=== PATIENT | female | born 1960 | race Caucasian/White ===

== ENCOUNTER 2016-09-28 08:23 | Emergency (ER) | payer MEDICARE, MEDICAID ==
[2016-09-28 10:09] LABS: Hematocrit 41 % (35-47); Hemoglobin 13.7 g/dl (12.0-16.0); Mean Corpuscular HGB Conc 34 g/dl (31-36); Mean Corpuscular Hemoglobin 30 pg (27-31); Mean Corpuscular Volume 90 fL (80-97); Mean Platelet Volume 9 um3 (7.4-10.4); Red Blood Count 4.53 10^6/ul (4.0-5.4); Red Cell Distribution Width 14 % (10.5-15); White Blood Count 8.4 10^3/ul (3.5-10.8)
[2016-09-28 10:20] LABS: ALT 19 U/L (7-52); Albumin 3.9 g/dL (3.2-5.2); Alkaline Phosphatase 158 U/L (34-104); Amylase < 10 U/L (29-103); BUN/Creatinine Ratio 16.2 (8-20); Blood Urea Nitrogen 11 mg/dL (6-24); C Reactive Protein 14.48 mg/L (< 5.00); CO2 Carbon Dioxide 27 mmol/L (22-32); Calcium 9.6 mg/dL (8.6-10.3); Chloride 104 mmol/L (101-111); EGFR African American 115.1 (>60); EGFR Non-African American 89.5 (>60); Globulin 3.3 g/dL (2-4); Glucose 124 mg/dL (70-100); Lipase < 10 U/L (11.0-82.0); Sodium 137 mmol/L (133-145); Total Protein 7.2 g/dL (6.4-8.9)
[2016-09-28 10:30] LABS: AST 26 U/L (13-39); Anion Gap 6 mmol/L (2-11); Potassium 4.6 mmol/L (3.5-5.0)
--- NOTE | 2016-09-28 11:02 | RAD ---
HISTORY: Diarrhea COMPARISONS: None VIEWS: Frontal views of the abdomen. FINDINGS: BOWEL: There is a nonspecific bowel gas pattern, with nondilated small bowel gas noted. There is a large amount of stool within the colon. There is gaseous distention of the colon without dilatation. CALCULI: There are no abnormal calculi. BONES AND SOFT TISSUES: Degenerative changes are noted OTHER FINDINGS: The lung bases are clear. There is no subphrenic gas. IMPRESSION: NONSPECIFIC BOWEL GAS PATTERN. GASEOUS DISTENTION OF THE COLON WITHOUT DILATATION
--- NOTE | 2016-09-28 14:51 | ED ---
Chirag Duran Billy, scribed for Arthur Connor MD on 09/28/16 at 0900 . GI/ HPI - HPI Summary HPI Summary: Patient is a 55 year-old female coming to [facility] for evaluation of 3 days of diarrhea. She describes watery stools without any blood or mucus. Nothing makes her symptoms better or worse. Denies any abdominal pain. She reports one isolated episode of nausea and vomiting. - History of Current Complaint Chief Complaint: EDGeneral Time Seen by Provider: 09/28/16 08:47 Stated Complaint: DIARRHEA FOR THREE DAYS Hx Obtained From: Patient Onset/Duration: Started Days Ago, Still Present Timing: Constant Severity: Moderate Current Severity: Moderate Pain Intensity: 0 Associated Signs and Symptoms: Positive: Nausea, Vomiting, Diarrhea Aggravating Factor(s): Nothing Alleviating Factor(s): Nothing - Additional Pertinent History Primary Care Physician: Dr. Rios - Allergy/Home Medications Allergies/Adverse Reactions: Allergies Allergy/AdvReac Type Severity Reaction Status Date / Time Clozapine [From Clozaril] Allergy Unknown Verified 04/08/16 13:36 Reaction Details Thiothixene [From Navane] Allergy Unknown Verified 04/08/16 13:36 Reaction Details PMH/Surg Hx/FS Hx/Imm Hx Endocrine/Hematology History: Denies: Hx Diabetes, Hx Thyroid Disease Cardiovascular History: Reports: Hx Hypertension Respiratory History: Denies: Hx Asthma, Hx Chronic Obstructive Pulmonary Disease (COPD) GI History: Denies: Hx Ulcer - Cancer History Hx Chemotherapy: No Hx Radiation Therapy: No - Surgical History Surgery Procedure, Year, and Place: eyes, teeth extracted Infectious Disease History: No Infectious Disease History: Denies: Hx Hepatitis, Hx Human Immunodeficiency Virus (HIV), Traveled Outside the US in Last 30 Days - Family History Known Family History: Negative: Hypertension, Diabetes - Social History Alcohol Use: None Substance Use Type: Reports: None Smoking Status (MU): Never Smoked Tobacco Have You Smoked in the Last Year: No Review of Systems Negative: Fever Positive: Vomiting, Diarrhea, Nausea. Negative: Abdominal Pain All Other Systems Reviewed And Are Negative: Yes Physical Exam - Summary Physical Exam Summary: The patient is an obese female. She is well-nourished in no acute distress and in no acute pain. The skin is warm and dry and skin color reflects adequate perfusion. There is feces on the feet. HEENT: The pupils are equal and reactive. The conjunctivae are clear and without drainage. Nares are patent and without drainage. Mouth reveals dry mucous membranes and the throat is without erythema and exudate. The external ears are intact. The ear canals are patent and without drainage. The tympanic membranes are intact. Patient has no visible dentition. Neck is supple with full range of motion and non-tender. There are no carotid bruits. There is no neck vein distension. Respiratory: Chest is non-tender. Lungs are clear to auscultation and breath sounds are symmetrical and equal. Cardiovascular: Heart is regular rate and rhythm. There is no murmur or rub auscultated. There is no peripheral edema and pulses are symmetrical and equal. Abdomen: The abdomen is soft, obese, and non-tender. There are normal bowel sounds heard in all four quadrants and there is no organomegaly palpated. Musculoskeletal: There is no back pain noted. Extremities are non-tender with full range of motion. There is good capillary refill. There is no peripheral edema or calf tenderness elicited. Neurological: Patient is alert and oriented to person, place and time. The patient has symmetrical motor strength in all four extremities. Cranial nerves are grossly intact. Deep tendon reflexes are symmetrical and equal in all four extremities. Psychiatric: The patient has an appropriate affect and does not exhibit any anxiety or depression. Triage Information Reviewed: Yes Vital Signs On Initial Exam: Initial Vitals Temp Pulse Resp BP Pulse Ox 98.5 F 94 20 156/73 100 09/28/16 08:26 09/28/16 08:26 09/28/16 08:26 09/28/16 08:26 09/28/16 08:26 Vital Signs Reviewed: Yes Diagnostics - Vital Signs Vital Signs Temp Pulse Resp BP Pulse Ox 09/28/16 08:26 98.5 F 94 20 156/73 100 - Laboratory Lab Results: Lab Results 09/28/16 09/28/16 09/28/16 Range/Units 09:45 09:45 09:45 WBC 8.4 (3.5-10.8) 10^3/ul RBC 4.53 (4.0-5.4) 10^6/ul Hgb 13.7 (12.0-16.0) g/dl Hct 41 (35-47) % MCV 90 (80-97) fL MCH 30 (27-31) pg MCHC 34 (31-36) g/dl RDW 14 (10.5-15) % Plt Count 220 (150-450) 10^3/ul MPV 9 (7.4-10.4) um3 Neut % (Auto) 70.7 (38-83) % Lymph % (Auto) 18.4 L (25-47) % [place] % (Auto) 7.4 (1-9) % Eos % (Auto) 2.9 (0-6) % Baso % (Auto) 0.6 (0-2) % Absolute Neuts (auto) 5.9 (1.5-7.7) 10^3/ul Absolute Lymphs (auto) 1.5 (1.0-4.8) 10^3/ul Absolute Monos (auto) 0.6 (0-0.8) 10^3/ul Absolute Eos (auto) 0.2 (0-0.6) 10^3/ul Absolute Basos (auto) 0.1 (0-0.2) 10^3/ul Absolute Nucleated RBC 0 10^3/ul Nucleated RBC % 0 Sodium 137 (133-145) mmol/L Potassium 4.6 (3.5-5.0) mmol/L Chloride 104 (101-111) mmol/L Carbon Dioxide 27 (22-32) mmol/L Anion Gap 6 (2-11) mmol/L BUN 11 (6-24) mg/dL Creatinine 0.68 (0.51-0.95) mg/dL Est GFR ( Amer) 115.1 (>60) Est GFR (Non-Af Amer) 89.5 (>60) BUN/Creatinine Ratio 16.2 (8-20) Glucose 124 H (70-100) mg/dL Lactic Acid 1.0 (0.5-2.0) mmol/L Calcium 9.6 (8.6-10.3) mg/dL Total Bilirubin 0.50 (0.2-1.0) mg/dL AST 26 (13-39) U/L ALT 19 (7-52) U/L Alkaline Phosphatase 158 H (34-104) U/L C-Reactive Protein 14.48 H (< 5.00) mg/L Total Protein 7.2 (6.4-8.9) g/dL Albumin 3.9 (3.2-5.2) g/dL Globulin 3.3 (2-4) g/dL Albumin/Globulin Ratio 1.2 (1-3) Amylase < 10 L (29-103) U/L Lipase < 10 L (11.0-82.0) U/L Result Diagrams: 09/28/16 09:45 09/28/16 09:45 Lab Statement: Any lab studies that have been ordered have been reviewed, and results considered in the medical decision making process. - Radiology abd xray Radiology Interpretation Completed By: Radiologist - NONSPECIFIC BOWEL GAS PATTERN. GASEOUS DISTENTION OF THE COLON WITHOUT DILATATION - EKG 0936 EKG Interpretation: afib 113 bpm, ST depressions V3-V6 GIGU Course/Dx - Course Assessment/Plan: Patient is a 55 year-old female coming to [facility] for evaluation of 3 days of diarrhea. She describes watery stools without any blood or mucus. Nothing makes her symptoms better or worse. Denies any abdominal pain. She reports one isolated episode of nausea and vomiting. Bloodwork WNL except for glucose of 124, CRP of 14.48. Abdominal XRay shows nonspecific bowel gas pattern. C. diff is negative. Occult blood is negative. Fecal leukocytes is negative. In the ED course, patient was hydrated with IVF. Vital signs continue to be stable. I believe that the patient has a viral diarrhea or osmotic diarrhea. Therefore, the patient will be discharged home to follow up with PCP. Patient is to take OTC anti-diarrheal medications such as immodium or pepto- bismol. Since the patient has no abdominal pain or other symptoms, she will be discharged home. She was instructed to return to the ED with more abdominal pain , N/V, intractable diarrhea, fevers, or chills. The patient understands and agrees. I discussed all the findings and test results with the patient. Patient was instructed to return to the emergency room immediately if any of the symptoms return or worsens. Plan of care was discussed with the patient and understands and agrees. All questions were answered at patient satisfaction. There were no further complaints or concerns. Lung exam before discharge: CTA B /L. Good air exchange. No wheezing or crackles heard. CVS: S1 and S2 present. No murmurs appreciated. Patient is alert and oriented x 3. Patient is hemodynamically stable. Patient will be discharged home with follow up coagulation operator in the next 2-3 days - Diagnoses Differential Diagnoses - Female: Gastroenteritis (Viral), Gerd, Urinary Tract Infection - Diarrhea Provider Diagnoses: Nausea vomiting and diarrhea Discharge - Discharge Plan Condition: Stable Disposition: HOME Patient Education Materials: Acute Nausea and Vomiting (ED), Acute Diarrhea (ED ) Referrals: Bayron Rios MD [Primary Care Provider] - Additional Instructions: TAKE OVER THE COUNTER ANTI-DIARRHEA MEDICATION SUCH IMMODIUM OR PEPTO-BISMOL. The documentation as recorded by the Chirag dhaliwal Billy accurately reflects the service I personally performed and the decisions made by Nikolas domingo Walter, MD.
[2016-09-28 14:58] VITALS: BP 113/76
== END 2016-09-28 14:56 | disposition home or self-care (01) ==
LOC: ED 08:23
DX: R11.2 Nausea with vomiting, unspecified (principal); R19.7 Diarrhea, unspecified
CPT/HCPCS: 36415; 74020; 80053; 82150; 82272; 83605; 83630; 83690; 85025; 86140; 87045; 87046; 87493; 87899; 93005; 99283

== ENCOUNTER 2017-06-24 18:17 | Emergency (ER) | payer MEDICARE, MEDICAID ==
[2017-06-24 19:49] LABS: Hematocrit 39 % (35-47); Hemoglobin 12.8 g/dl (12.0-16.0); Mean Corpuscular HGB Conc 33 g/dl (31-36); Mean Corpuscular Hemoglobin 31 pg (27-31); Mean Corpuscular Volume 92 fL (80-97); Mean Platelet Volume 9 um3 (7.4-10.4); Red Cell Distribution Width 14 % (10.5-15); White Blood Count 7.9 10^3/ul (3.5-10.8)
[2017-06-24 20:02] LABS: Albumin 3.8 g/dL (3.2-5.2); BUN/Creatinine Ratio 27.3 (8-20); Calcium 9.4 mg/dL (8.6-10.3); EGFR African American 118.7 (>60); EGFR Non-African American 92.3 (>60); Globulin 3.2 g/dL (2-4); Magnesium 1.8 mg/dL (1.9-2.7); Potassium 4.5 mmol/L (3.5-5.0); Total Bilirubin 0.4 mg/dL (0.2-1.0)
[2017-06-24 20:48] LABS: TSH (Thyroid Stimulating Horm) 4.39 mcIU/mL (0.34-5.60)
[2017-06-24 22:48] LABS: Urine Bacteria Absent (Absent); Urine Bilirubin Negative (Negative); Urine Glucose Negative (Negative); Urine Nitrite Negative (Negative)
[2017-06-24] MEDS ORDERED: Cephalexin CAP* 500 MG PO ONE (22:51)
--- NOTE | 2017-06-24 22:55 | ED ---
Jamir Duran Benjamin, scribed for Heron Rojas MD on 06/24/17 at 2138 . Complex/Multi-Sys Presentation - HPI Summary HPI Summary: 56yo female sent from [place] for lethargy. Staff also noticed flushing without any other particular complaints. Pt denies CP or SOB. Pt is unable to give full hx due to intellectual disabilities. LEVEL 5 CAVEAT intellectual disabilities. - History Of Current Complaint Chief Complaint: EDGeneral Hx Obtained From: Family/Varnish Melter - per group home report: lethargy Hx From Patient Unobtainable Due To: Altered Mental Status - LEVEL 5 CAVEAT intellectual disabilities. Associated Signs And Symptoms: Negative: SOB, Chest Pain - Allergies/Home Medications Allergies/Adverse Reactions: Allergies Allergy/AdvReac Type Severity Reaction Status Date / Time Bee Venom Allergy Unknown Verified 03/13/17 14:24 Reaction Details Clozapine [From Clozaril] Allergy See Comment Verified 04/19/17 09:21 Thiothixene [From Navane] Allergy See Comment Verified 04/19/17 09:21 PMH/Surg Hx/FS Hx/Imm Hx Endocrine/Hematology History: Denies: Hx Diabetes, Hx Thyroid Disease Cardiovascular History: Reports: Hx Hypertension Denies: Hx Angina Respiratory History: Denies: Hx Asthma, Hx Chronic Obstructive Pulmonary Disease (COPD) GI History: Denies: Hx Ulcer - Cancer History Hx Chemotherapy: No Hx Radiation Therapy: No - Surgical History Surgery Procedure, Year, and Place: eyes, teeth extracted Infectious Disease History: No Infectious Disease History: Denies: Hx Hepatitis, Hx Human Immunodeficiency Virus (HIV), Traveled Outside the US in Last 30 Days - Family History Known Family History: Negative: Hypertension, Diabetes - Social History Alcohol Use: None Substance Use Type: Reports: None Smoking Status (MU): Never Smoked Tobacco Have You Smoked in the Last Year: No Review of Systems - ROS Summary Review of Systems Summary: LEVEL 5 CAVEAT intellectual disabilities. Negative: Chest Pain Negative: Shortness Of Breath All Other Systems Reviewed And Are Negative: No Physical Exam - Summary Physical Exam Summary: Appearance: Well-appearing, Well-nourished Skin: Warm Eyes: Normal ENT: Normal Neck: Supple, nontender Respiratory: Clear to auscultation Cardiovascular: irregularly irregular rate and rhythm consistent with A-fib. Abdomen: Soft, nontender Bowel: Present Musculoskeletal: Normal, Strength/ROM Intact. Able to ambulate normally. Neurological: Normal, A&Ox3, limited verbal ability Psychiatric: Normal Triage Information Reviewed: Yes Vital Signs On Initial Exam: Initial Vitals Temp Pulse Resp BP Pulse Ox 96.4 F 80 18 135/58 98 06/24/17 18:22 06/24/17 18:22 06/24/17 18:22 06/24/17 18:22 06/24/17 18:22 Vital Signs Reviewed: Yes Completion Of Physical Exam Limited Due To: Level 5 - LEVEL 5 CAVEAT intellectual disabilities. Diagnostics - Vital Signs Vital Signs Temp Pulse Resp BP Pulse Ox 06/24/17 18:22 96.4 F 80 18 135/58 98 - Laboratory Lab Results: Lab Results 06/24/17 06/24/17 Range/Units 19:38 19:38 WBC 7.9 (3.5-10.8) 10^3/ul RBC 4.20 (4.0-5.4) 10^6/ul Hgb 12.8 (12.0-16.0) g/dl Hct 39 (35-47) % MCV 92 (80-97) fL MCH 31 (27-31) pg MCHC 33 (31-36) g/dl RDW 14 (10.5-15) % Plt Count 238 (150-450) 10^3/ul MPV 9 (7.4-10.4) um3 Neut % (Auto) 62.5 (38-83) % Lymph % (Auto) 26.9 (25-47) % [place] % (Auto) 6.3 (1-9) % Eos % (Auto) 3.4 (0-6) % Baso % (Auto) 0.9 (0-2) % Absolute Neuts (auto) 4.9 (1.5-7.7) 10^3/ul Absolute Lymphs (auto) 2.1 (1.0-4.8) 10^3/ul Absolute Monos (auto) 0.5 (0-0.8) 10^3/ul Absolute Eos (auto) 0.3 (0-0.6) 10^3/ul Absolute Basos (auto) 0.1 (0-0.2) 10^3/ul Absolute Nucleated RBC 0 10^3/ul Nucleated RBC % 0 Sodium 140 (133-145) mmol/L Potassium 4.5 (3.5-5.0) mmol/L Chloride 102 (101-111) mmol/L Carbon Dioxide 35 H (22-32) mmol/L Anion Gap 3 (2-11) mmol/L BUN 18 (6-24) mg/dL Creatinine 0.66 (0.51-0.95) mg/dL Est GFR ( Amer) 118.7 (>60) Est GFR (Non-Af Amer) 92.3 (>60) BUN/Creatinine Ratio 27.3 H (8-20) Glucose 147 H (70-100) mg/dL Calcium 9.4 (8.6-10.3) mg/dL Magnesium 1.8 L (1.9-2.7) mg/dL Total Bilirubin 0.40 (0.2-1.0) mg/dL AST 20 (13-39) U/L ALT 19 (7-52) U/L Alkaline Phosphatase 142 H (34-104) U/L Total Protein 7.0 (6.4-8.9) g/dL Albumin 3.8 (3.2-5.2) g/dL Globulin 3.2 (2-4) g/dL Albumin/Globulin Ratio 1.2 (1-3) TSH Pending Result Diagrams: 06/24/17 19:38 06/24/17 19:38 Lab Statement: Any lab studies that have been ordered have been reviewed, and results considered in the medical decision making process. - EKG 2115. EKG Rhythm: Atrial Fibrillation - 81bpm EKG Interpretation: borderline repolarization abnormality Re-Evaluation - Re-Evaluation First Eval Re-Evaluation Time: 22:53 - pt in no acute distress, denies any pain, agrees to and understnads dc instructions Change: Improved Complex Multi-Symp Course/Dx Course Of Treatment: pt feels better after ed course, seen to have mild uti, given abx and prescription, labs wnl, instructed to fu with PMD. rate controlled , no cp or sob. no signs of cardiac ischemic on ekg. - Diagnoses Provider Diagnoses: Atrial fibrillation Discharge - Discharge Plan Condition: Stable Disposition: HOME Prescriptions: Cephalexin CAP* [Keflex CAP*] 500 mg PO BID #10 cap Patient Education Materials: Urinary Tract Infection in Women (ED) Referrals: Bayron Rios MD [Primary Care Provider] - Additional Instructions: PLEASE RETURN IMMEDIATELY TO THE ER IF YOU HAVE ANY WORSENING OR CONCERNING SYMPTOMS PLEASE MAKE AN APPOINTMENT TO BE SEEN BY YOUR PRIMARY CARE DOCTOR WITHIN 1 WEEK The documentation as recorded by the Jamir dhaliwal Benjamin accurately reflects the service I personally performed and the decisions made by me, Heron Rojas MD.
[2017-06-24 23:01] VITALS: BP 150/69
== END 2017-06-24 23:21 | disposition home or self-care (01) ==
LOC: ED 18:17
DX: I48.91 Unspecified atrial fibrillation (principal); F79 Unspecified intellectual disabilities; Z86.79 Personal history of other diseases of the circulatory system
CPT/HCPCS: 36415; 80053; 80162; 81003; 81015; 83735; 84443; 85025; 87086; 93005; 99282; A9270-GY

== ENCOUNTER 2017-07-05 14:25 | Emergency (ER) | payer MEDICARE, MEDICAID ==
--- NOTE | 2017-07-05 16:50 | UC ---
Nausea/Vomiting/Diarrhea HPI - HPI Summary HPI Summary: 56 y/o female presents to the urgent care c/o diarrhea for the past 4 days. Pt has Hx intellectual disability level 5 CAVET. She was brought in to the clinic by a caregiver who left before Pt was seen. Caregiver stated to call a Medicaid cab when Pt was ready to go back to [facility]. Even though Pt's disability, she was able to states she has had 4 episodes of diarrhea every day for the past 3 days. She stated she is eating well and drinking well. She described her breakfast and luch. She denied cough, SOB, chest pain, abdominal pain, fever, N/V, blood in the stool. She hands in the [place] nursing report which states Pt's medication list and allergies. - History of Current Complaint Chief Complaint: UCGI Stated Complaint: DIARRHEA Time Seen by Provider: 07/05/17 16:21 Hx Obtained From: Patient, Medical Records - from [facility] report Hx From Patient Unobtainable Due To: Other - intelecctual disabilities Level CAVET ?: No Onset/Duration: Gradual Onset, Lasting Days - 3 days Timing: Intermittent Episodes Lasting: Severity Initially: Mild Severity Currently: Mild Pain Intensity: 0 Pain Scale Used: 0-10 Numeric Aggravating Factor(s): Food Nausea/Vomiting Presence: None Diarrhea Presence: Yes Diarrhea Frequency: Other - 4 episodes / day Diarrhea Characteristics: Watery - Risk Factors Influenza Risk Factors: Negative Surgical Obstruction Risk Factor(s): Negative - Allergies/Home Medications Allergies/Adverse Reactions: Allergies Allergy/AdvReac Type Severity Reaction Status Date / Time Bee Venom Allergy Unknown Verified 07/05/17 15:28 Reaction Details Clozapine [From Clozaril] Allergy See Comment Verified 07/05/17 15:28 Thiothixene [From Navane] Allergy See Comment Verified 07/05/17 15:28 PMH/Surg Hx/FS Hx/Imm Hx Previously Healthy: Yes Cardiovascular History: Hypertension Psychological History: Depression, Schizophrenia Other Psychological History: Parkinson - Surgical History Surgical History: Yes Surgery Procedure, Year, and Place: eyes, teeth extracted - Family History Known Family History: Positive: None - Pt unable to tell Negative: Hypertension, Diabetes - Social History Occupation: Disabled Lives: [facility] [employer] [facility] Alcohol Use: None Substance Use Type: None Smoking Status (MU): Never Smoked Tobacco Have You Smoked in the Last Year: No Review of Systems Constitutional: Negative Skin: Negative Eyes: Negative ENT: Negative Respiratory: Negative Cardiovascular: Negative Gastrointestinal: Diarrhea Genitourinary: Negative Motor: Negative Neurovascular: Negative Musculoskeletal: Negative Neurological: Negative Psychological: Negative Is Patient Immunocompromised?: No All Other Systems Reviewed And Are Negative: Yes Physical Exam Triage Information Reviewed: Yes Vital Signs: Initial Vital Signs Temp 96.9 F 07/05/17 15:22 Pulse 83 07/05/17 15:22 Resp 18 07/05/17 15:22 BP 111/47 07/05/17 15:22 Pulse Ox 98 07/05/17 15:22 - Additional Comments Vital Signs Reviewed: Yes General:Patient is a well developed and nourished obese female who is sitting comfortable in the examining table. Patient is not in any acute respiratory distress. Eyes: Positive: Conjunctiva Clear - PERRLA, EOMI, fundi grossly normal ENT: Positive: Normal ENT inspection, Hearing grossly normal, Pharynx normal, TMs normal Neck: Positive: Supple, Nontender, No Lymphadenopathy Respiratory: Positive: Chest non-tender, Lungs clear, Normal breath sounds, No respiratory distress Cardiovascular: Positive: RRR,S1 and S2 present, No Murmur, Pulses Normal, Brisk Capillary Refill Abdomen Description: Positive: Nontender, Other: - Abd: Flat with no distention. No surface trauma, scars, incisions. hyperactive bowel sounds present in all four quadrants. No tenderness, guarding, rigidity to palpation. No masses palpated, no pulsation in epigastric area. No organomegaly. Negative [place] signs. No periumbilical tenderness. No rebound in the lower quadrants. NT over [place] point. no distension. Good femoral pulses bilaterally. No hernia noted. No CVAT bilaterally Musculoskeletal: Positive: Strength Intact, ROM Intact, No Edema,FROM in all major joints, no edema, no cyanosis or clubbing. Neuro: Alert and oriented x 3. No acute neurological deficits. Speech delay. However Pt is able to answer questions Psycological: Pt with intellectual disabilities Skin: Dry and warm Naus/Vom/Diarrhea Course/Dx - Course Course Of Treatment: 56 y/o female presents to the urgent care c/o diarrhea for the past 4 days. Pt has Hx intellectual disability level 5 CAVET. She was brought in to the clinic by a caregiver who left before Pt was seen. Caregiver stated to call a Medicaid cab when Pt was ready to go back to [facility]. Even though Pt's disability, she was able to states she has had 4 episodes of diarrhea every day for the past 3 days. She stated she is eating well and drinking well. She described her breakfast and luch. She denied cough, SOB, chest pain, abdominal pain, fever, N/V, blood in the stool. She hands in the [place] nursing report which states Pt's medication list and allergies. Pt was recently seen at the ER on 06/24/2017 Dx with UTI. Hx obtained. PE: WNL. No signs of dehydration, Pt is hemodynamically stable. PE: WNL. Pt advised to bring back the stool, however due to her limitaion, instructions were faxed to the retirement, so they vcan bring back the stool sample. Stool culture ordered, O&P, Lactoferrin. E.Coli also ordered. Pt wiil be notify of the results for further treatment. [place] form filled out with treatment and instructions to increase hydration and eat small soft meals, if worsening of diarrhea to give PT Imodium PO to alleviate Diarrhea. If Symptoms worsen to go immediately to the ER for further management. f/u with PCP if not complete resolution of symptoms for BW and further management. Pt left the clinic ambulating, hemodynamically stable. - Differential Dx/Diagnosis Differential Diagnoses - Female: Diverticulosis, Gastroenteritis (Viral), Gastroenteritis (Bacterial), Diarrhea, Colitis, Dehydration Provider Diagnoses: 1- Acute diarrhea Condition At Discharge: Stable Discharge - Discharge Plan Condition: Stable Disposition: HOME Patient Education Materials: Acute Diarrhea (ED) Referrals: Bayron Rios MD [Primary Care Provider] - 2 Days Additional Instructions: 1- Please increase fluid intake with Gatorade or Pedialyte OTC. eat soft meals and rest. 2- Please bring back your stool to sent to lab for culture. 3- If diarrhea becomes severe start taking Imodium PO 2mg PO as directed in your list on medications 3- If you develops fever or abdominal pain w/ recurrent episodes of diarrhea please go the ER, otherwise f/u with your PCP if diarrhea not resolving in 2-3 days
[2017-07-05 17:14] VITALS: BP 117/67
== END 2017-07-05 17:05 | disposition home or self-care (01) ==
LOC: UCEAST 14:25
DX: R19.7 Diarrhea, unspecified (principal); F79 Unspecified intellectual disabilities; I10 Essential (primary) hypertension; F20.9 Schizophrenia, unspecified; F32.9 Major depressive disorder, single episode, unspecified; G20 Parkinson's disease
CPT/HCPCS: 99212; G0463

== ENCOUNTER 2019-06-03 13:56 | Emergency (ER) | payer MEDICARE, MEDICAID ==
[2019-06-03 16:00] LABS: ABS Eosinophils 0.1 10^3/ul (0-0.6); ABS Lymphocytes 1.3 10^3/ul (1.0-4.8); ABS Monocytes 0.7 10^3/ul (0-0.8); ABS Neutrophils 5.2 10^3/ul (1.5-7.7); Hematocrit 39 % (35-47); Hemoglobin 13.3 g/dL (12.0-16.0); Lymphocyte % 17.9 %; Mean Corpuscular HGB Conc 34 g/dL (31-36); Mean Corpuscular Hemoglobin 31 pg (27-31); Mean Corpuscular Volume 91 fL (80-97); Mean Platelet Volume 8.6 fL (7.4-10.4); Platelet Count 219 10^3/uL (150-450); Red Blood Count 4.34 10^6 /uL (3.70-4.87); Red Cell Distribution Width 14 % (10-15); White Blood Count 7.4 10^3/uL (3.5-10.8)
[2019-06-03 16:19] LABS: ALT 17 U/L (7-52); AST 22 U/L (13-39); Albumin 3.9 g/dL (3.2-5.2); Albumin/Globulin Ratio 1.2 (1-3); Alkaline Phosphatase 129 U/L (34-104); Anion Gap 7 mmol/L (2-11); BUN/Creatinine Ratio 21.7 (8-20); Blood Urea Nitrogen 15 mg/dL (6-24); CO2 Carbon Dioxide 30 mmol/L (22-32); Calcium 9.8 mg/dL (8.6-10.3); Chloride 104 mmol/L (101-111); EGFR African American 105.4 (>60); EGFR Non-African American 87.1 (>60); Globulin 3.2 g/dL (2-4); Glucose 113 mg/dL (70-100); Potassium 4.2 mmol/L (3.5-5.0); Sodium 141 mmol/L (135-145); Total Protein 7.1 g/dL (6.4-8.9)
--- NOTE | 2019-06-03 16:59 | ED ---
Abdominal Pain/Female - HPI Summary HPI Summary: 58 year old F presenting to [facility] complains of intermittent mid abdominal pain x3 weeks. Patient states that today, she was unable to handle the pain so she decided to come to the ED. No chest pain, shortness of breath, difficulty urinating. Reports constipation. Last bowel movement 2 weeks ago. No abdominal pain currently. The patient rates the pain 0/10 in severity. Symptoms aggravated by nothing. Symptoms alleviated by nothing. - History of Current Complaint Chief Complaint: EDAbdPain Stated Complaint: ABD PAIN PER PT Time Seen by Provider: 06/03/19 16:52 Hx Obtained From: Patient Onset/Duration: Lasting Weeks - 3, Still Present Timing: Intermittent Episode Lasting Severity Initially: Moderate Severity Currently: None Pain Intensity: 0 Pain Scale Used: 0-10 Numeric Location: Diffuse Aggravating Factor(s): Nothing Alleviating Factor(s): Nothing Associated Signs and Symptoms: Positive: Negative - chest pain, shortness of breath, difficulty urinating, Constipation Allergies/Adverse Reactions: Allergies Allergy/AdvReac Type Severity Reaction Status Date / Time bee venom protein (honey bee) Allergy Anaphylatic Verified 06/03/19 14:02 Shock clozapine [From Clozaril] Allergy Hives/Diff. Verified 06/03/19 14:02 Breathing/I tching thiothixene [From Navane] Allergy Hives/Diff. Verified 06/03/19 14:02 Breathing/I tching Home Medications: Home Medications Aspirin EC TAB* [Ecotrin EC Low Dose 81 MG*] 81 mg PO DAILY 06/03/19 [History Confirmed 06/03/19] Ibuprofen TAB* [Motrin TAB* 600 MG] 600 mg PO TID PRN 06/03/19 [History Confirmed 06/03/19] Loperamide CAP* [Imodium CAP*] 2 mg PO TID PRN 06/03/19 [History Confirmed 06/03] Metoprolol Succinate XL TAB* [Toprol XL TAB*] 25 mg PO QAM 06/03/19 [History Confirmed 06/03/19] Nystatin TOP POWDER* 1 applic TOPICAL TID PRN 06/03/19 [History Confirmed ] diPHENhydraMINE PO* [Benadryl PO 25 MG TAB*] 25 mg PO BEDTIME PRN 06/03/19 [ History Confirmed 06/03/19] tiZANidine TAB* [Zanaflex TAB*] 4 mg PO TID PRN 06/03/19 [History Confirmed ] PMH/Surg Hx/FS Hx/Imm Hx Endocrine/Hematology History: Denies: Hx Diabetes, Hx Thyroid Disease Cardiovascular History: Reports: Hx Hypertension Denies: Hx Angina Respiratory History: Denies: Hx Asthma, Hx Chronic Obstructive Pulmonary Disease (COPD) GI History: Denies: Hx Ulcer - Cancer History Hx Chemotherapy: No Hx Radiation Therapy: No - Surgical History Surgery Procedure, Year, and Place: eyes, teeth extracted Infectious Disease History: No Infectious Disease History: Denies: Hx Hepatitis, Hx Human Immunodeficiency Virus (HIV), Traveled Outside the [place] in Last 30 Days - Family History Known Family History: Negative: Hypertension, Diabetes - Social History Alcohol Use: None Substance Use Type: Reports: None Smoking Status (MU): Never Smoked Tobacco Have You Smoked in the Last Year: No Review of Systems Negative: Chest Pain Negative: Shortness Of Breath Positive: Abdominal Pain - mid, Other - constipation Positive: no symptoms reported All Other Systems Reviewed And Are Negative: Yes Physical Exam - Summary Physical Exam Summary: Constitutional: Well-developed, Well-nourished, Alert. (-) Distressed Skin: Warm, Dry, some erythema in lower legs HENT: Normocephalic; Atraumatic Eyes: Conjunctiva normal Neck: Musculoskeletal ROM normal neck. (-) JVD, (-) Stridor, (-) Tracheal deviation Cardio: Rhythm regular, rate normal, Heart sounds normal; Intact distal pulses; The pedal pulses are 2+ and symmetric. Radial pulses are 2+ and symmetric. (-) Murmur Pulmonary/Chest wall: Effort normal. (-) Respiratory distress, (-) Wheezes, (-) Rales Abd: Soft, epigastric tenderness, (-) Distension, (-) Guarding, (-) Rebound Musculoskeletal: Trace pitting edema in leg bilaterally Lymph: (-) Cervical adenopathy Neuro: Alert, Oriented x3 Psych: Mood and affect Normal Triage Information Reviewed: Yes Vital Signs On Initial Exam: Initial Vitals Temp Pulse Resp BP Pulse Ox 98.0 F 106 16 117/87 97 06/03/19 13:59 06/03/19 13:59 06/03/19 13:59 06/03/19 13:59 06/03/19 13:59 Vital Signs Reviewed: Yes Procedures - Sedation Patient Received Moderate/Deep Sedation with Procedure: No Diagnostics - Vital Signs Vital Signs Temp Pulse Resp BP Pulse Ox 06/03/19 15:45 98.1 F 99 19 138/73 99 06/03/19 13:59 98.0 F 106 16 117/87 97 - Laboratory Lab Results: Lab Results 06/03/19 06/03/19 Range/Units 15:44 15:44 WBC 7.4 (3.5-10.8) 10^3/uL RBC 4.34 (3.70-4.87) 10^6 /uL Hgb 13.3 (12.0-16.0) g/dL Hct 39 (35-47) % MCV 91 (80-97) fL MCH 31 (27-31) pg MCHC 34 (31-36) g/dL RDW 14 (10-15) % Plt Count 219 (150-450) 10^3/uL MPV 8.6 (7.4-10.4) fL Neut % (Auto) 69.7 % Lymph % (Auto) 17.9 % [place] % (Auto) 9.8 % Eos % (Auto) 2.0 % Baso % (Auto) 0.6 % Absolute Neuts (auto) 5.2 (1.5-7.7) 10^3/ul Absolute Lymphs (auto) 1.3 (1.0-4.8) 10^3/ul Absolute Monos (auto) 0.7 (0-0.8) 10^3/ul Absolute Eos (auto) 0.1 (0-0.6) 10^3/ul Absolute Basos (auto) 0.0 (0-0.2) 10^3/ul Absolute Nucleated RBC 0.0 10^3/ul Nucleated RBC % 0.0 Sodium 141 (135-145) mmol/L Potassium 4.2 (3.5-5.0) mmol/L Chloride 104 (101-111) mmol/L Carbon Dioxide 30 (22-32) mmol/L Anion Gap 7 (2-11) mmol/L BUN 15 (6-24) mg/dL Creatinine 0.69 (0.51-0.95) mg/dL Est GFR ( Amer) 105.4 (>60) Est GFR (Non-Af Amer) 87.1 (>60) BUN/Creatinine Ratio 21.7 H (8-20) Glucose 113 H (70-100) mg/dL Calcium 9.8 (8.6-10.3) mg/dL Total Bilirubin 0.60 (0.2-1.0) mg/dL AST 22 (13-39) U/L ALT 17 (7-52) U/L Alkaline Phosphatase 129 H (34-104) U/L Total Protein 7.1 (6.4-8.9) g/dL Albumin 3.9 (3.2-5.2) g/dL Globulin 3.2 (2-4) g/dL Albumin/Globulin Ratio 1.2 (1-3) Result Diagrams: 06/03/19 15:44 06/03/19 15:44 Lab Statement: Any lab studies that have been ordered have been reviewed, and results considered in the medical decision making process. - EKG 1708 Cardiac Rate: NL - 91 BPM EKG Rhythm: Atrial Fibrillation Summary of EKG Findings: Atrial fibrillation at 91 BPM, normal MS, normal QRS, normal QTc, normal axis, normal ST, normal T-waves. Overall, atrial fibrillation with normal ventricular rate. Re-Evaluation - Re-Evaluation First Eval Re-Evaluation Time: 20:02 Change: Improved Comment: upon re-examination, patient has no epigastric tenderness. agrees to d /c Abdominal Pain Fem Course/Dx - Course Course Of Treatment: 58 year old F complains of intermittent abdominal pain x3 weeks. Patient states that today, she was unable to handle the pain so she decided to come to the ED. Reports constipation. Last bowel movement 2 weeks ago. Physical exam findings: epigastric tenderness, trace pitting edema in bilateral lower extremities, erythema in lower legs. Bloodwork results with no significant abnormalities except for BUN/creatinine 21.7, glucose 113, alkaline phosphatase 129, lipase <10. The patient's pain has resolved. Patient will be discharged home with follow up from her primary care provider. Patient was instructed to return to Emergency Department for new or worsening symptoms. Patient understands and is agreeable to this plan. - Diagnoses Provider Diagnoses: Abdominal pain Discharge ED - Sign-Out/Discharge Documenting (check all that apply): Patient Departure - Discharge - Discharge Plan Condition: Stable Disposition: HOME Patient Education Materials: Acute Abdominal Pain (ED) Print Language: POLISH Referrals: Bayron Rios MD [Primary Care Provider] - Additional Instructions: Ms. Mendoza may resume all home medications, activities and meals. - Billing Disposition and Condition Condition: STABLE Disposition: Home - Attestation Statements Document Initiated by Juanibe: Yes Documenting Scribe: Tran Pearson Provider For Whom Rachelle is Documenting (Include Credential): Elisabeth Gutiérrez MD Scribe Attestation: ITran, scribed for Elisabeth Wooten MD on 06/03/19 at 2218. Scribe Documentation Reviewed: Yes Provider Attestation: The documentation as recorded by the Tran [email or web address] accurately reflects the service I personally performed and the decisions made by me, Elisabeth Wooten MD Status of Scribe Document: Viewed
[2019-06-03 17:32] LABS: Troponin I 0.01 ng/mL (<0.04)
[2019-06-03 21:48] VITALS: BP 120/67
== END 2019-06-03 21:45 | disposition home or self-care (01) ==
LOC: ED 13:56
DX: R10.84 Generalized abdominal pain (principal); I48.91 Unspecified atrial fibrillation; I10 Essential (primary) hypertension; Z79.82 Long term (current) use of aspirin; Z88.8 Allergy status to other drugs, medicaments and biological substances; Z91.030 Bee allergy status; M62.81 Muscle weakness (generalized); R06.02 Shortness of breath
CPT/HCPCS: 36415; 80053; 83690; 84484; 85025; 93005; 99282

== ENCOUNTER 2019-07-03 08:30 | Emergency (ER) | payer MEDICARE, MEDICAID ==
--- NOTE | 2019-07-03 09:13 | ED ---
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 She states she was unable to get out of the chair and experienced a mechanical fall while attempting to do this. She states she slid out of chair onto knees. She states this kind of weakness is abnormal for her. She denies any pain from the fall. Pt denies any fever, chills, erythema of eyes, sore throat, CP, SOB, cough, abdominal pain, N/V, dysuria, hematuria, myalgia, edema, rash, or dizziness. - History of Current Complaint Chief Complaint: EDFall Stated Complaint: WEAKNESS Time Seen by Provider: 07/03/19 09:01 Hx Obtained From: Patient Mechanism of Injury: Fall Onset/Duration: Started Minutes Ago Pain Intensity: 0 - Additional Pertinent History Primary Care Physician: Dr. Rios - Allergy/Home Medications Allergies/Adverse Reactions: Allergies Allergy/AdvReac Type Severity Reaction Status Date / Time bee venom protein (honey bee) Allergy Anaphylatic Verified 06/05/19 11:53 Shock clozapine [From Clozaril] Allergy Hives/Diff. Verified 06/05/19 11:53 Breathing/I tching thiothixene [From Navane] Allergy Hives/Diff. Verified 06/05/19 11:53 Breathing/I tching CORN STARCH Allergy Hives/Diff. Uncoded 06/05/19 11:53 Breathing/I tching Home Medications: Home Medications Calcium Polycarbophil [Fiber Laxative] 625 mg PO BID 07/03/19 [History Confirmed 07/03/19] Ferrous Sulfate TAB* 325 mg PO DAILY 07/03/19 [History Confirmed 07/03/19] Furosemide TAB* [Lasix TAB*] 20 mg PO MOTH 07/03/19 [History Confirmed 07/03/19] Magnesium Oxide TAB* [MagOx 400 TAB*] 400 mg PO BID 07/03/19 [History Confirmed 07/03/19] Zinc Oxide 12.8% (Topical) [Triple Paste 12.8% (TOPICAL)] 20 % TOPICAL DAILY [History Confirmed 07/03/19] hydrOXYzine HCL TAB* [Atarax 25 MG TAB*] 25 mg PO BEDTIME PRN 07/03/19 [History Confirmed 07/03/19] PMH/Surg Hx/FS Hx/Imm Hx Endocrine/Hematology History: Denies: Hx Diabetes, Hx Thyroid Disease Cardiovascular History: Reports: Hx Hypertension Denies: Hx Angina, Hx Pacemaker/ICD Respiratory History: Denies: Hx Asthma, Hx Chronic Obstructive Pulmonary Disease (COPD) GI History: Denies: Hx Ulcer History: Denies: Hx Renal Disease Sensory History: Denies: Hx Hearing Aid Psychiatric History: Denies: Hx Panic Disorder - Cancer History Hx Chemotherapy: No Hx Radiation Therapy: No - Surgical History Surgery Procedure, Year, and Place: eyes, teeth extracted Infectious Disease History: No Infectious Disease History: Denies: Hx Hepatitis, Hx Human Immunodeficiency Virus (HIV), Traveled Outside the [place] in Last 30 Days - Family History Known Family History: Negative: Hypertension, Diabetes - Social History Alcohol Use: None Substance Use Type: Reports: None Smoking Status (MU): Never Smoked Tobacco Have You Smoked in the Last Year: No Review of Systems Negative: Fever, Chills Negative: Erythema Negative: Sore Throat Negative: Chest Pain Negative: Shortness Of Breath, Cough Negative: Abdominal Pain, Vomiting, Nausea Negative: dysuria, hematuria Negative: Myalgia, Edema Negative: Rash Neurological: Other - Neg: Dizziness Positive: Weakness All Other Systems Reviewed And Are Negative: No Physical Exam - Summary Physical Exam Summary: Constitutional: Well-developed, Well-nourished, Alert. (-) Distressed Skin: Warm, Dry HENT: Normocephalic; Atraumatic Eyes: Conjunctiva normal Neck: Musculoskeletal ROM normal neck. (-) JVD, (-) Stridor, (-) Tracheal deviation Cardio: Rhythm regular, rate normal, Heart sounds normal; Intact distal pulses; The pedal pulses are 2+ and symmetric. Radial pulses are 2+ and symmetric. (-) Murmur Pulmonary/Chest wall: Effort normal. (-) Respiratory distress, (-) Wheezes, (-) Rales Abd: Soft, (-) tenderness, (-) Distension, (-) Guarding, (-) Rebound Musculoskeletal: (-) Edema Lymph: (-) Cervical adenopathy Neuro: Alert, Oriented x3. Lower extremity strength 5/5 bilaterally. Psych: Mood and affect Normal Triage Information Reviewed: Yes Vital Signs On Initial Exam: Initial Vitals Temp Pulse Resp BP Pulse Ox 98.1 F 91 18 121/83 99 12/13/19 08:41 07/03/19 08:41 07/03/19 08:41 07/03/19 08:41 07/03/19 08:41 Vital Signs Reviewed: Yes Procedures - Sedation Patient Received Moderate/Deep Sedation with Procedure: No Diagnostics - Vital Signs Vital Signs Temp Pulse Resp BP Pulse Ox 07/03/19 08:41 98.1 F 91 18 121/83 99 - Laboratory Result Diagrams: 07/03/19 09:15 07/03/19 09:15 Lab Statement: Any lab studies that have been ordered have been reviewed, and results considered in the medical decision making process. - Radiology CXR Radiology Interpretation Completed By: Radiologist Summary of Radiographic Findings: No acute process by radiograph. ED Provider has reviewed this report. - CT Brain CT Interpretation Completed By: Radiologist Summary of CT Findings: No acute intracranial pathology. - EKG 0945 Cardiac Rate: NL - 77 BPM EKG Rhythm: Atrial Fibrillation Summary of EKG Findings: No STEMI. Unchanged from 06/03/19. ED Physician has reviewed and interpreted this EKG. 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 Labs reveal Urine Protein 1+ A, Urine Blood 2+ A, Urine Nitrate Positive A, Ur Leukocyte Esterase 3+ A, Urine WBC 3+ A, Urine RBC 3+ A, Ur Squamous Epith Cells Present A, Urine Bacteria 2+ A. Patient was able to ambulate around the ED and currently has no complaints. Brain CT and CXR was unremarkable. EKG presents no acute problems. She was administered Keflex and Nystatin in the ED. A plan for discharge was discussed with the patient and she was agreeable with this plan. - Diagnoses Provider Diagnoses: Fall, UTI (urinary tract infection) Discharge ED - Sign-Out/Discharge Documenting (check all that apply): Patient Departure - Discharge - Discharge Plan Condition: Stable Disposition: HOME Prescriptions: Cephalexin CAP* [Keflex CAP*] 500 mg PO QID #20 cap Patient Education Materials: Urinary Tract Infection in Women (ED) Referrals: Bayron Rios MD [Primary Care Provider] - 3 Days Additional Instructions: Return to ED with new or worsening symptoms. - Attestation Statements Document Initiated by Scribe: Yes Documenting Scribe: Brandon Chase Provider For Whom Scribe is Documenting (Include Credential): Fran Barron MD Scribe Attestation: I, Brandon Chase, scribed for Fran Barron MD on 07/03/19 at 1119. Status of Scribe Document: Ready
[2019-07-03 09:26] LABS: ABS Basophils 0.1 10^3/ul (0-0.2); ABS Eosinophils 0.3 10^3/ul (0-0.6); ABS Lymphocytes 1.2 10^3/ul (1.0-4.8); ABS Monocytes 0.6 10^3/ul (0-0.8); ABS Neutrophils 6.5 10^3/ul (1.5-7.7); Eosinophil % 3.4 %; Hematocrit 38 % (35-47); Hemoglobin 13.2 g/dL (12.0-16.0); Lymphocyte % 13.8 %; Mean Corpuscular HGB Conc 35 g/dL (31-36); Mean Corpuscular Hemoglobin 31 pg (27-31); Mean Corpuscular Volume 90 fL (80-97); Mean Platelet Volume 8.2 fL (7.4-10.4); Nucleated Red Blood Cells % 0.1; Platelet Count 220 10^3/uL (150-450); Red Blood Count 4.22 10^6 /uL (3.70-4.87); Red Cell Distribution Width 14 % (10-15); White Blood Count 8.7 10^3/uL (3.5-10.8)
[2019-07-03 09:45] LABS: Albumin 3.7 g/dL (3.2-5.2); Albumin/Globulin Ratio 1.2 (1-3); BUN/Creatinine Ratio 27.1 (8-20); Calcium 9.6 mg/dL (8.6-10.3); EGFR African American 126.2 (>60); EGFR Non-African American 104.3 (>60); Globulin 3.2 g/dL (2-4); Magnesium 1.9 mg/dL (1.9-2.7); Potassium 4.5 mmol/L (3.5-5.0); Total Bilirubin 0.7 mg/dL (0.2-1.0); Total Protein 6.9 g/dL (6.4-8.9)
[2019-07-03] MEDS ORDERED: Nystatin TOP POWDER* 15 GM BTL TOPICAL SCH (10:00)
[2019-07-03 10:13] LABS: TSH (Thyroid Stimulating Horm) 2.87 mcIU/mL (0.34-5.60)
[2019-07-03 10:38] LABS: Urine Appearance Turbid; Urine Bilirubin Negative (Negative); Urine Blood 2+ (Negative); Urine Color Amber; Urine Glucose Negative (Negative); Urine Ketones Negative (Negative); Urine Nitrite Positive (Negative); Urine Protein 1+(30 mg/dL) (Negative); Urine Urobilinogen Negative (Negative)
[2019-07-03 10:41] LABS: Urine Bacteria 2+ (Absent); Urine Red Blood Cell 3+(>10/hpf) (Absent); Urine Squamous Epithelial Cell Present (Absent); Urine White Blood Cell 3+(>20/hpf) (Absent)
[2019-07-03] MEDS ORDERED: Cephalexin CAP* 500 MG PO ONE (11:00)
[2019-07-03 11:33] VITALS: BP 108/71
--- NOTE | 2019-07-05 05:55 | ED ---
Imaging and Labs Follow Up Follow Up Type: Labs/Cultures Labs/Culture Result: Urine culture preliminary grew Escherichia coli Patient Communication/Plan: Patient treated with Keflex Patient Communication/Plan: Awaiting sensitivities Provider Diagnoses: Fall, UTI (urinary tract infection)
== END 2019-07-03 11:37 | disposition home or self-care (01) ==
LOC: ED 08:30
DX: N39.0 Urinary tract infection, site not specified (principal); B96.20 Unspecified Escherichia coli [E. coli] as the cause of diseases classified elsewhere; R53.1 Weakness; I48.91 Unspecified atrial fibrillation; I10 Essential (primary) hypertension; Z91.030 Bee allergy status; Z88.8 Allergy status to other drugs, medicaments and biological substances; Z91.09 Other allergy status, other than to drugs and biological substances
CPT/HCPCS: 36415; 70450; 71045; 80053; 81003; 81015; 83605; 83735; 84443; 84484; 85025; 87077; 87086; 87186; 93005; 99282; A9270-GY

== ENCOUNTER 2019-07-17 10:19 | Inpatient (IN) | payer MEDICARE, MEDICAID ==
--- NOTE | 2019-07-17 10:54 | ED ---
Complex/Multi-Sys Presentation - HPI Summary HPI Summary: The patient is a 58 y/o F arriving by ambulance to [facility] from [facility] with a chief complaint of atraumatic mechanical fall this morning. She reports that she slipped and fell, causing her to land on the right side, but she did not hit her head. Nursing staff witnessed the fall. She states that following the fall, she attempted to get up by herself but was unable to without help. She denies headache, hip pain, neck pain, back pain, abdominal pain, nausea, SOB , CP, or any changes in urination or BMs. She has no other complaints at this time. PMHx: HTN, atrial fibrillation, schizophrenia. Nonsmoker, no EtOH, no substance use. Medications reviewed. Allergies noted. - History Of Current Complaint Chief Complaint: EDFall Time Seen by Provider: 07/17/19 10:33 Hx Obtained From: Patient Severity Currently: None Location: Negative Aggravating Factor(s): nothing Alleviating Factor(s): nothing Associated Signs And Symptoms: Negative: Headache, SOB, Chest Pain, Nausea, Abdominal Pain, Back Pain, Other - neck pain, hip pain, changes in urination or BMs, head injury - Allergies/Home Medications Allergies/Adverse Reactions: Allergies Allergy/AdvReac Type Severity Reaction Status Date / Time bee venom protein (honey bee) Allergy Anaphylatic Verified 06/05/19 11:53 Shock clozapine [From Clozaril] Allergy Hives/Diff. Verified 06/05/19 11:53 Breathing/I tching thiothixene [From Navane] Allergy Hives/Diff. Verified 06/05/19 11:53 Breathing/I tching CORN STARCH Allergy Hives/Diff. Uncoded 06/05/19 11:53 Breathing/I tching PMH/Surg Hx/FS Hx/Imm Hx Endocrine/Hematology History: Denies: Hx Diabetes, Hx Thyroid Disease Cardiovascular History: Reports: Hx Atrial Fibrillation, Hx Hypertension Denies: Hx Angina, Hx Pacemaker/ICD Respiratory History: Denies: Hx Asthma, Hx Chronic Obstructive Pulmonary Disease (COPD) GI History: Denies: Hx Ulcer History: Denies: Hx Renal Disease Sensory History: Denies: Hx Hearing Aid Psychiatric History: Reports: Hx Schizophrenia Denies: Hx Panic Disorder - Cancer History Hx Chemotherapy: No Hx Radiation Therapy: No - Surgical History Surgical History: Yes Surgery Procedure, Year, and Place: eyes, teeth extracted Infectious Disease History: No Infectious Disease History: Denies: Hx Hepatitis, Hx Human Immunodeficiency Virus (HIV), Traveled Outside the [place] in Last 30 Days - Family History Known Family History: Negative: Hypertension, Diabetes - Social History Alcohol Use: None Hx Substance Use: No Substance Use Type: Reports: None Hx Tobacco Use: No Smoking Status (MU): Never Smoked Tobacco Have You Smoked in the Last Year: No Review of Systems Negative: Chest Pain Negative: Shortness Of Breath Negative: Abdominal Pain, Nausea, Other - changes in BMs Negative: other - changes in urination Negative: Arthralgia - neck, back, hip Negative: Headache All Other Systems Reviewed And Are Negative: Yes Physical Exam - Summary Physical Exam Summary: Constitutional: Well-developed although appears older than age, Well-nourished, Alert. (-) Distressed Skin: Warm, Dry, No obvious contusions HENT: Normocephalic; Atraumatic Eyes: Conjunctiva normal Neck: Musculoskeletal ROM normal neck. (-) JVD, (-) Stridor, (-) Tracheal deviation Cardio: Rhythm regular, rate normal, Heart sounds normal; Intact distal pulses; The pedal pulses are 2+ and symmetric. Radial pulses are 2+ and symmetric. (-) Murmur Pulmonary/Chest wall: Effort normal. (-) Respiratory distress, (-) Wheezes, (-) Rales Abd: Soft, (-) tenderness, (-) Distension, (-) Guarding, (-) Rebound Musculoskeletal: (-) Edema Lymph: (-) Cervical adenopathy Neuro: Alert, Oriented x3, Good strength in all extremities Psych: Mood and affect Normal Triage Information Reviewed: Yes Vital Signs On Initial Exam: Initial Vitals Temp Pulse Resp BP Pulse Ox 97.7 F 70 16 132/59 98 07/17/19 10:32 07/17/19 10:32 07/17/19 10:32 07/17/19 10:32 07/17/19 10:32 Vital Signs Reviewed: Yes Procedures - Sedation Patient Received Moderate/Deep Sedation with Procedure: No Diagnostics - Vital Signs Vital Signs Temp Pulse Resp BP Pulse Ox 07/17/19 10:32 97.7 F 70 16 132/59 98 - Laboratory Lab Statement: Any lab studies that have been ordered have been reviewed, and results considered in the medical decision making process. - CT Brain CT CT Interpretation Completed By: Radiologist Summary of CT Findings: Impression: 1. No acute intracranial process evident. 2. No CT evidence for traumatic brain injury. 3. Moderate involutional change. ED physician has reviewed this report. Complex Multi-Symp Course/Dx Course Of Treatment: Patient is a 58 year-old female arriving by ambulance from senior living after sustaining an atraumatic mechanical fall onto her right side this morning as witnessed by staff. She denies any headache, hip pain, neck pain , back pain, abdominal pain, nausea, SOB, CP, or any changes in urination or BMs. Physical exam reveals good strength in all extremities, no obvious contusions, and appearance is older than age. Brain CT is negative. Since patient does not have any complaints, and the CT is negative, she is safe for discharge home with diagnosis of fall. Results discussed with patient. Patient understands and agrees with plan. - Diagnoses Provider Diagnoses: Fall Discharge ED - Sign-Out/Discharge Documenting (check all that apply): Patient Departure - Patient will be discharged home. - Discharge Plan Condition: Stable Disposition: HOME Patient Education Materials: Contusion in Adults (ED), Fall Prevention (ED) Print Language: ETHIOPIAN Referrals: Bayron Rios MD [Primary Care Provider] - 3 Days Additional Instructions: Ms. Mendoza may return to all home activities, medications, and meals. - Attestation Statements Document Initiated by Scribe: Yes Documenting Scribe: Terri Espinal Provider For Whom Scribe is Documenting (Include Credential): Dr. Elisabeth Wooten MD Scribe Attestation: Terri Duran scribed for Dr. Elisabeth Wooten MD on 07/17/19 at 1222. Status of Scribe Document: Ready
[2019-07-17 15:39] LABS: ABS Basophils 0.1 10^3/ul (0-0.2); ABS Eosinophils 0.2 10^3/ul (0-0.6); ABS Lymphocytes 1.8 10^3/ul (1.0-4.8); ABS Monocytes 0.4 10^3/ul (0-0.8); ABS Neutrophils 4.2 10^3/ul (1.5-7.7); Eosinophil % 3.6 %; Hematocrit 36 % (35-47); Hemoglobin 12.2 g/dL (12.0-16.0); Lymphocyte % 26.2 %; Mean Corpuscular HGB Conc 34 g/dL (31-36); Mean Corpuscular Hemoglobin 31 pg (27-31); Mean Corpuscular Volume 90 fL (80-97); Mean Platelet Volume 8.6 fL (7.4-10.4); Nucleated Red Blood Cells % 0.1; Platelet Count 225 10^3/uL (150-450); Red Blood Count 3.97 10^6 /uL (3.70-4.87); Red Cell Distribution Width 14 % (10-15); White Blood Count 6.7 10^3/uL (3.5-10.8)
[2019-07-17 16:00] LABS: Albumin 3.4 g/dL (3.2-5.2); Albumin/Globulin Ratio 1.2 (1-3); Calcium 9.1 mg/dL (8.6-10.3); EGFR Non-African American 96.7 (>60); Globulin 2.9 g/dL (2-4); Total Bilirubin 0.6 mg/dL (0.2-1.0); Total Protein 6.3 g/dL (6.4-8.9)
[2019-07-17] MEDS ORDERED: Ibuprofen TAB* 600 MG PO PRN (17:01)
[2019-07-17] MEDS ORDERED: Loperamide CAP* 2 MG PO PRN (17:01)
[2019-07-17] MEDS ORDERED: Acetaminophen TAB* 325 MG PO PRN (17:03)
[2019-07-17] MEDS ORDERED: Digoxin TAB* 0.25 MG PO SCH (18:00)
[2019-07-17] MEDS ORDERED: Enoxaparin(*) 40 MG/0.4 ML SYR SUBCUT SCH (18:00)
[2019-07-17] MEDS ORDERED: fluPHENAZine HCL TAB* 5 MG PO SCH (21:00)
--- NOTE | 2019-07-17 21:38 | HP ---
CC: Dr. Bayron Rios* HISTORY AND PHYSICAL: DATE OF ADMISSION: 07/17/19 PRIMARY CARE PROVIDER: Dr. Bayron Rios. ATTENDING PHYSICIAN: Dr. Brandon Orellana* (dictated by Bonnie Millard NP). CHIEF COMPLAINT: Fall. HISTORY OF PRESENT ILLNESS: Ms. Mendoza is a 58-year-old female with past medical history of atrial fibrillation and schizophrenia, who presented to the emergency room today after a fall. The patient resides at [facility]. Reportedly this morning, the patient states that she was getting up to get something out of a drawer when she fell. She denies hitting her head and denies any other injuries. She remembers the fall and did not lose any consciousness. Reportedly, staff at [facility] did witness the fall and the patient did require help getting up. The patient reports that she fell 1 time 4 to 5 weeks ago. She had some back pain after that fall, which has resolved at this time. The patient was seen in our emergency room on 07/03/19, at which time, she was diagnosed with a UTI and prescribed a course of Keflex, which she has completed. Reviewing her chart, it appears as though the patient has been seen by Neurology and was last seen on 06/24/19 for right-sided weakness followup. She has had a brain and cervical spine MRI, which are unremarkable, but she has been noted to have some right-sided weakness and she has been seen leaning towards her right side. At that point, Neurology had no acute concerns , though did recommend that she potentially have an EMG as well as physical therapy and they wanted to follow up with her in 2 to 3 months. In the emergency room, the patient was noted to have normal vitals. She had a brain CT, which was unremarkable. She had labs, which were also unremarkable. ED staff attempted to discharge the patient, though [facility] ultimately refused to take the patient back, as our physical therapist did recommend that she be a standby assist and they noted that she would need to be independent to return back. I will note that according to Neurology notes, the patient has been using a walker to ambulate. Because there was not a safe discharge plan, the hospitalist service was asked to evaluate for admission. PAST MEDICAL HISTORY: 1. Atrial fibrillation. 2. Schizophrenia. 3. Obstructive sleep apnea. 4. Seizure x1. PAST SURGICAL HISTORY: None. HOME MEDICATIONS: 1. Abilify 30 mg p.o. daily. 2. Aspirin 81 mg p.o. daily. 3. Cogentin 2 mg p.o. daily. 4. Calcium polycarbophil 625 mg p.o. b.i.d. 5. Digoxin 0.25 mg p.o. Saturday, Saturday, Saturday, Saturday, Saturday. 6. EpiPen 0.3 mg injection once p.r.n. 7. Ferrous sulfate 325 mg p.o. daily. 8. Fluoxetine 30 mg p.o. daily. 9. Prolixin 5 mg p.o. at bedtime. 10. Furosemide 20 mg p.o. Saturday and . 11. Hydroxyzine 25 mg p.o. at bedtime. 12. Ibuprofen 600 mg p.o. t.i.d. p.r.n. 13. Imodium 2 mg p.o. t.i.d. p.r.n. 14. Magnesium oxide 400 mg p.o. b.i.d. 15. Metoprolol succinate 25 mg p.o. daily. 16. Nystatin powder 1 application topically 2 to 3 times a day p.r.n. 17. Zinc oxide 12.8% one application topically daily. ALLERGIES: CLOZAPINE, THIOTHIXENE, BEE VENOM and CORN STARCH. FAMILY HISTORY: Unknown as the patient was a foster child. SOCIAL HISTORY: The patient denies any tobacco, alcohol, or recreational drug use. She is disabled and lives at [facility]. She reports that staff at [facility] do make healthcare decisions for her, but she is unable to name anyone person in particular. REVIEW OF SYSTEMS: An 11-point review of systems was performed and all the pertinent positive and negative findings are in the HPI. All other systems are negative. PHYSICAL EXAMINATION GENERAL: Ms. Mendoza is a well-developed, well-nourished, obese white female, lying in bed, in no acute distress. She appears slightly older than her stated age. VITAL SIGNS: Temp 97.7, heart rate 78, respiratory rate 20, oxygen saturation 96% on room air, blood pressure 118/69. HEENT: Head is atraumatic and normocephalic. Visual valdovinos are grossly intact. Pupils are equal, round, and reactive to light and accommodation. Extraocular movements intact. Oral mucous membranes moist. NECK: Thyroid not palpable. Trachea midline. No lymphadenopathy. RESPIRATORY: Symmetrical chest expansion. Lungs clear to auscultation throughout. CARDIOVASCULAR: Irregular rhythm. S1 and S2 present. No murmurs, rubs, or gallops. No JVD. ABDOMEN: Soft, nontender to palpation. Bowel sounds normoactive throughout. EXTREMITIES: Skin warm and smooth bilaterally. Trace pitting edema to bilateral lower extremities. Pedal pulses 2+ bilaterally. NEUROLOGIC: Awake, alert, and oriented x4, though forgetful and slow to respond. Moves all extremities. Strength 5/5 in upper and lower extremities bilaterally. SKIN: There is some mild redness noted to the left lower leg, though no open sores and no obvious site of infection. DIAGNOSTIC STUDIES/LAB DATA: WBC 6.7, RBC 3.97, hemoglobin 12.2, hematocrit 36 , platelets 225. Sodium 141, potassium 4.0, chloride 106, carbon dioxide 30, BUN 12, creatinine 0.63, glucose 92. Brain CT reads as no acute intracranial process evident. No CT evidence for traumatic brain injury. Mild involutional change. ASSESSMENT AND PLAN: Ms. Mendoza is a 58-year-old female with past medical history of atrial fibrillation, schizophrenia and untreated sleep apnea, who presented to the emergency room today after a fall. Staff at [facility] reported that they were unable to take the patient back, as she was requiring a standby assist to safely ambulate. The patient will be admitted inpatient longterm for : 1. Weakness. This appears to be somewhat of a chronic issue, as the patient has been seen at least twice now by Neurology for right-sided weakness. She has had a workup with them without any significant findings. They did recommend an EMG. It is unclear if that has been done at this point or if it is scheduled. They did also recommend physical therapy and followup in 2 to 3 months. She had a mechanical fall today. There is no evidence of syncope. There is no evidence of infection or other acute pathology that would exacerbate or lead to a fall. She will be admitted longterm status with physical therapy and occupational therapy evaluations and likely need for subacute rehab. 2. Atrial fibrillation. The patient is rate controlled. Per Cardiology note, she is on aspirin only and no anticoagulation due to a CHADS2-VASc score of 1. We will continue her aspirin, metoprolol and digoxin. 3. Schizophrenia. Continue fluoxetine, Abilify, Cogentin and Prolixin. 4. Lower extremity edema. Continue furosemide twice weekly. 5. FEN. The patient does not requiring any fluid resuscitation or electrolyte repletion. I have ordered a regular diet. 6. Code status. She will be a full code. 7. DVT prophylaxis. According to the DVT Risk Assessment, the patient scores a 3, putting her at high risk. I have ordered Lovenox. TIME SPENT: Approximately 50 minutes were spent on this admission, greater than half of that time spent [id number] with the patient obtaining my history , performing my physical exam and reviewing the plan of care. This case has been reviewed with my attending, Dr. Orellana, who is in agreement with the plan of care. BONNIE MILLARD NP [id number]/[facility] #: [id number] DEE DEE
[2019-07-17] MEDS: Digoxin TAB* 0.25 MG PO SCH (22:17)
[2019-07-17] MEDS: Magnesium Oxide TAB* 400 MG PO SCH (22:17)
[2019-07-17] MEDS: hydrOXYzine HCL TAB* 25 MG PO SCH (22:17)
--- NOTE | 2019-07-18 08:46 | PN ---
Subjective Date of Service: 07/18/19 Interval History: patient with no complaints. Denies chest pain or shortness of breath. Denies fever or chills, n/v/d. Family History: Unchanged from Admission Social History: Unchanged from Admission Past Medical History: Unchanged from Admission Objective Active Medications: Acetaminophen (Tylenol Tab*) 650 mg PO Q4H PRN PRN Reason: PAIN - MILD Aripiprazole (Abilify Tab*) 30 mg PO QAM [facility] Aspirin (Aspirin Ec Tab*) 81 mg PO DAILY [facility] Benztropine Mesylate (Cogentin Tab*) 2 mg PO DAILY [facility] Digoxin (Lanoxin Tab*) 0.25 mg PO [id number]@0900 [facility] Last Admin: 07/17/19 22:17 Dose: 0.25 mg Enoxaparin Sodium (Lovenox(*)) 40 mg SUBCUT Q24H [facility] Last Admin: 07/17/19 22:18 Dose: 40 mg Ferrous Sulfate (Ferrous Sulfate Tab*) 325 mg PO DAILY [facility] Fluoxetine HCl (Prozac Cap*) 10 mg PO QAM [facility] Fluoxetine HCl (Prozac Cap*) 20 mg PO QAM [facility] Fluphenazine HCl (Prolixin Tab*) 5 mg PO 0900 [facility] Furosemide (Lasix Tab*) 20 mg PO MOTH [facility] Hydroxyzine HCl (Atarax Tab*) 25 mg PO BEDTIME [facility] Last Admin: 07/17/19 22:17 Dose: 25 mg Ibuprofen (Motrin Tab*) 600 mg PO TID PRN PRN Reason: PAIN - MODERATE Loperamide HCl (Imodium Cap*) 2 mg PO TID PRN PRN Reason: DIARRHEA Magnesium Oxide (Magox 400 Tab*) 400 mg PO BID [facility] Last Admin: 07/17/19 22:17 Dose: 400 mg Metoprolol Succinate (Toprol Xl Tab*) 25 mg PO QAM [facility] Oxygen Devices in Use Now: None Appearance: alert and oriented sitting on the edge of the bed, no acute distress Eyes: No Scleral Icterus Ears/Nose/Mouth/Throat: Clear Oropharnyx, Mucous Membranes Moist Neck: NL Appearance and Movements; NL JVP, Trachea Midline Respiratory: Symmetrical Chest Expansion and Respiratory Effort, Clear to Auscultation Cardiovascular: NL Sounds; No Murmurs; No JVD, No Edema Abdominal: NL Sounds; No Tenderness; No Distention Extremities: No Edema, No Clubbing, Cyanosis Skin: No Rash or Ulcers Neurological: Alert and Oriented x 3 Nutrition: Taking PO's Result Diagrams: 07/17/19 15:29 07/17/19 15:28 Assess/Plan/Problems-Billing Assessment: Ms. Mendoza is a 58 y.o female with presented with a fall. She was admitted for [facility] for short term rehab placement as she was unable to return to [facility]. - Patient Problems (1) Weakness Current Visit: Yes Status: Acute Code(s): R53.1 - WEAKNESS SNOMED Code(s) : 67170201 Comment: - PT evaluation - recommended Skilled PT - will need STR at discharge (2) Atrial fibrillation Current Visit: No Status: Chronic Code(s): I48.91 - UNSPECIFIED ATRIAL FIBRILLATION SNOMED Code(s): 49217644 Comment: stable Continue digoxin and metoprolol (3) Schizophrenia Current Visit: Yes Status: Acute Code(s): F20.9 - SCHIZOPHRENIA, UNSPECIFIED SNOMED Code(s): 86421090 Comment: Stable Continue abilify, prozac, cogentin and prolixin (4) DVT prophylaxis Current Visit: Yes Status: Acute Code(s): Z29.9 - ENCOUNTER FOR PROPHYLACTIC MEASURES, UNSPECIFIED SNOMED Code(s): 306013721 Comment: lovenox (5) Full code status Current Visit: Yes Status: Acute Code(s): Z78.9 - OTHER SPECIFIED HEALTH STATUS SNOMED Code(s): 326539048 Status and Disposition: STR at discharge
[2019-07-18] MEDS: Magnesium Oxide TAB* 400 MG PO SCH ×2 (09:43→21:37)
[2019-07-18] MEDS: Aspirin EC TAB* 81 MG TAB.EC PO SCH (09:44)
[2019-07-18] MEDS: ARIPiprazole TAB* 15 MG PO SCH (09:44)
[2019-07-18] MEDS: fluPHENAZine HCL TAB* 5 MG PO SCH (09:44)
[2019-07-18] MEDS: Ferrous Sulfate TAB* 325 MG PO SCH (09:44)
[2019-07-18] MEDS: FLUoxetine CAP* 10 MG PO SCH (09:44)
[2019-07-18] MEDS: Benztropine TAB* 2 MG PO SCH (09:44)
[2019-07-18] MEDS: FLUoxetine CAP* 20 MG PO SCH (09:44)
[2019-07-18] MEDS: Metoprolol Succinate XL TAB* 25 MG PO SCH (09:44)
[2019-07-18] MEDS ORDERED: Magnesium Hydroxide LIQ* 30 ML UDC PO PRN (13:27)
[2019-07-18] MEDS: Digoxin TAB* 0.25 MG PO SCH (14:02)
[2019-07-18] MEDS: Enoxaparin(*) 40 MG/0.4 ML SYR SUBCUT SCH ×2 (21:38→21:42)
[2019-07-18] MEDS: hydrOXYzine HCL TAB* 25 MG PO SCH (21:38)
[2019-07-18] MEDS: Nystatin TOP POWDER* 15 GM BTL TOPICAL SCH (21:38)
[2019-07-19] MEDS: Benztropine TAB* 2 MG PO SCH (08:44)
[2019-07-19] MEDS: fluPHENAZine HCL TAB* 5 MG PO SCH (08:44)
[2019-07-19] MEDS: FLUoxetine CAP* 10 MG PO SCH (08:44)
[2019-07-19] MEDS: Magnesium Oxide TAB* 400 MG PO SCH ×2 (08:44→21:28)
[2019-07-19] MEDS: Aspirin EC TAB* 81 MG TAB.EC PO SCH (08:44)
[2019-07-19] MEDS: Digoxin TAB* 0.25 MG PO SCH (08:44)
[2019-07-19] MEDS: Ferrous Sulfate TAB* 325 MG PO SCH (08:44)
[2019-07-19] MEDS: ARIPiprazole TAB* 15 MG PO SCH (08:45)
[2019-07-19] MEDS: Nystatin TOP POWDER* 15 GM BTL TOPICAL SCH ×2 (08:45→21:30)
[2019-07-19] MEDS: FLUoxetine CAP* 20 MG PO SCH (08:45)
[2019-07-19] MEDS: Metoprolol Succinate XL TAB* 25 MG PO SCH (08:45)
[2019-07-19] MEDS: hydrOXYzine HCL TAB* 25 MG PO SCH (21:28)
[2019-07-19] MEDS: Enoxaparin(*) 40 MG/0.4 ML SYR SUBCUT SCH (21:29)
[2019-07-20] MEDS: Metoprolol Succinate XL TAB* 25 MG PO SCH (07:48)
[2019-07-20] MEDS: Aspirin EC TAB* 81 MG TAB.EC PO SCH (07:48)
[2019-07-20] MEDS: FLUoxetine CAP* 10 MG PO SCH (07:48)
[2019-07-20] MEDS: Benztropine TAB* 2 MG PO SCH (07:48)
[2019-07-20] MEDS: Magnesium Oxide TAB* 400 MG PO SCH ×2 (07:48→20:47)
[2019-07-20] MEDS: Ferrous Sulfate TAB* 325 MG PO SCH (07:48)
[2019-07-20] MEDS: FLUoxetine CAP* 20 MG PO SCH (07:48)
[2019-07-20] MEDS: fluPHENAZine HCL TAB* 5 MG PO SCH (07:49)
[2019-07-20] MEDS: ARIPiprazole TAB* 15 MG PO SCH (07:49)
[2019-07-20] MEDS: Nystatin TOP POWDER* 15 GM BTL TOPICAL SCH ×2 (07:49→20:49)
[2019-07-20] MEDS ORDERED: Furosemide TAB* 20 MG PO SCH (09:00)
[2019-07-20] MEDS: Enoxaparin(*) 40 MG/0.4 ML SYR SUBCUT SCH (20:44)
[2019-07-20] MEDS: hydrOXYzine HCL TAB* 25 MG PO SCH (20:47)
[2019-07-21 07:11] VITALS: BP 109/63
[2019-07-21] MEDS: Ferrous Sulfate TAB* 325 MG PO SCH (08:38)
[2019-07-21] MEDS: Benztropine TAB* 2 MG PO SCH (08:39)
[2019-07-21] MEDS: FLUoxetine CAP* 10 MG PO SCH (08:39)
[2019-07-21] MEDS: ARIPiprazole TAB* 15 MG PO SCH (08:39)
[2019-07-21] MEDS: fluPHENAZine HCL TAB* 5 MG PO SCH (08:39)
[2019-07-21] MEDS: FLUoxetine CAP* 20 MG PO SCH (08:39)
[2019-07-21] MEDS: Magnesium Oxide TAB* 400 MG PO SCH (08:39)
[2019-07-21] MEDS: Aspirin EC TAB* 81 MG TAB.EC PO SCH (08:39)
[2019-07-21] MEDS: Metoprolol Succinate XL TAB* 25 MG PO SCH (08:39)
[2019-07-21] MEDS: Nystatin TOP POWDER* 15 GM BTL TOPICAL SCH (08:40)
[2019-07-21] MEDS: Digoxin TAB* 0.25 MG PO SCH (08:45)
--- NOTE | 2019-07-21 14:57 | DS ---
CC: Dr. Rios * DISCHARGE SUMMARY: DATE OF ADMISSION: 07/17/19 DATE OF DISCHARGE: 07/21/19 ATTENDING PHYSICIAN: Dr. Osullivan* (dictated by Tate Carrera, KACEY). PRIMARY CARE PHYSICIAN: Dr. Rios. PRIMARY DIAGNOSIS: Fall secondary to deconditioning. SECONDARY DIAGNOSES: 1. Atrial fibrillation. 2. Schizophrenia. 3. Bilateral lower extremity edema. PROCEDURES: None. STUDIES: Brain CT without contrast showed no acute intracranial process evident. No CT evidence for traumatic brain injury and moderate involutional change. PERTINENT LAB DATA: RBC 3.97, hemoglobin 12.2, hematocrit 36, WBC is 6.7. Sodium 141, potassium 4.0, chloride 106, creatinine 0.63 and GFR 96.7. Total protein 6.3. HISTORY OF PRESENT ILLNESS/HOSPITAL COURSE: This is a 58-year-old female with a past medical history significant for atrial fibrillation and schizophrenia who presented to the emergency room on 07/17/19 after a fall. Normally, she resides at [facility] and she fell when she had gotten up to get something out of a drawer. She did not hit her head and did not sustain any other injury at this time. She did not lose consciousness, though did require help getting up. She had fallen previously several weeks ago that had resulted in back pain that has since resolved. Later she had come to the emergency room on 07/03/19 and was diagnosed with a UTI and was prescribed a course of Keflex which she had completed. Recently, she was seen on 06/24/19 by Neurology for right-sided weakness followup. She had had an unremarkable brain and cervical spine MRI. However, there are no acute concerns and she is to follow up with Neurology in 2 to 3 months. In the emergency room, labs were drawn and brain CT done. She had no fever, normotensive, no tachycardia and had no leukocytosis. It was felt that her fall was due to deconditioning rather than an infective or neurological process. She was admitted under [facility] care. Her hospital stay was relatively uneventful with no acute needs cropping up, has been eating, and ambulating with a standby assist and a walker. She was unable to go back to [facility] due to her inability to obtain an independent ambulation status. So, therefore is being transferred to [facility] for further conditioning. Today, she is in good spirits and is sitting up eating her lunch and denies any acute complaints. REVIEW OF SYSTEMS: An 11-point system review was performed, which had no pertinent positives. Negative for chest pain, shortness of breath, fever, chills, palpitations, abdominal pain, nausea, vomiting or issues moving her bowels or bladder. PHYSICAL EXAMINATION: Vital Signs: 98.2 Fahrenheit, 73 pulse, 16 respirations , 97% oxygen on room air, 109/63 blood pressure. General: This is a well- developed obese woman seen sitting up in the chair, in no acute distress. Neck is supple. Cardiac: S1, S2 present; heart rate regular. No murmurs, gallops, or rubs appreciated. Respiratory: Lung sounds clear throughout bilaterally on room air. No accessory muscle use noted. Abdomen: Soft, nontender, nondistended with positive bowel sounds x4. Musculoskeletal: Strength is 5/5 to bilateral upper and lower extremities with no clubbing or cyanosis of the digits. Skin is intact with no rashes or lesions noted. Neurologic: No focal deficits appreciated. Sensation intact to light touch. Psych: She is alert and oriented x3. Thought content organized. DISCHARGE PLAN: Diet is a regular diet. Activity is to be up with chef assistant and a walker. She is to return to the emergency room if she develops any weakness, numbness or tingling in one or both of her extremities or if she has sudden loss of continence of bowel or bladder. The plan for each condition: 1. For fall secondary to deconditioning: She is to continue PT and OT at [facility] with the plan of releasing her back into [facility] if possible. Continue supportive care. 2. Atrial fibrillation: She is to continue her digoxin and metoprolol. She is not on any anticoagulation. Her CHADs/VASc score is 1, only scoring due to her gender, which she goals at 0.6% stroke risk per year and does not qualify for anticoagulation at this time. To continue her baby aspirin at that time. 3. Schizophrenia. She is to continue her Abilify, fluoxetine, Cogentin, and Atarax. 4. Iron deficiency anemia. Continue her ferrous sulfate. She is not anemic at this time. 5. Bilateral lower extremity edema. She is to continue her furosemide 20 mg p.o. every Saturday and . MEDICATIONS: To continued upon discharge: 1. Acetaminophen 650 mg p.o. q.4 hours p.r.n. 2. Aripiprazole 30 mg p.o. q.a.m. 3. Aspirin 81 mg p.o. daily. 4. Benztropine mesylate 2 mg p.o. daily. 5. Digoxin 0.25 mg p.o. q.Saturday, Saturday, Saturday, Saturday, and Saturday at 9 a.m. 6. Ferrous sulfate 325 mg p.o. daily. 7. Fluoxetine 30 mg p.o. q.a.m. 8. Fluphenazine 5 mg p.o. daily 9. Furosemide 20 mg p.o. q.Saturday and . 10. Hydroxyzine 25 mg p.o. at bedtime. 11. Ibuprofen 600 mg p.o. t.i.d. p.r.n. 12. Loperamide 2 mg p.o. t.i.d. p.r.n. 13. Magnesium hydroxide 30 mL p.o. q.4 hours p.r.n. 14. Magnesium oxide 400 mg p.o. b.i.d. scheduled. 15. Metoprolol succinate 25 mg p.o. q.a.m. CONDITION UPON DISCHARGE: Stable. DISPOSITION: To be discharged to [facility]. TIME SPENT: Time spent on the patient is about 40 minutes with half of that spent [id number]. TATE CARRERA, DESKTOP ARCHITECT [id number]/[facility] #: [id number] [facility]
== END 2019-07-21 14:30 | DRG 948 ==
LOC: ED 10:19 → MED 16:58
PROVIDERS: ADMIT Internal Medicine; ATTEND Internal Medicine
DX: R53.81 Other malaise (principal); W18.30XA Fall on same level, unspecified, initial encounter; Y92.099 Unspecified place in other non-institutional residence as the place of occurrence of the external cause; I48.91 Unspecified atrial fibrillation; G47.33 Obstructive sleep apnea (adult) (pediatric); F20.9 Schizophrenia, unspecified; R60.0 Localized edema; R53.1 Weakness; D50.9 Iron deficiency anemia, unspecified; Z75.1 Person awaiting admission to adequate facility elsewhere; Z79.82 Long term (current) use of aspirin; Z79.1 Long term (current) use of non-steroidal anti-inflammatories (NSAID); Z79.899 Other long term (current) drug therapy; Z91.030 Bee allergy status; Z88.8 Allergy status to other drugs, medicaments and biological substances; Z91.018 Allergy to other foods
CPT/HCPCS: 36415; 70450; 80053; 85025; 99283; A9270-GY; G8978-GP-CJ; G8979-GP-CI; G8987-GO-CJ; G8988-GO-CI; J1650